=== PATIENT | male | born 1955 | race Caucasian/White ===

== ENCOUNTER 2024-03-07 06:05 | Day surgery (SDC) | payer MEDICARE, OTHER, SELFPAY ==
[2024-03-07] VITALS (10 sets, daily range): BP systolic 88–161; BP diastolic 45–69; BMI 45.1
[2024-03-07 06:46] LABS: Glucose - Point of Care 147 mg/dl (70-99)
[2024-03-07] MEDS: NSS 428 ML IV (07:14)
[2024-03-07] MEDS: LOW STRENGTH ASPIRIN 81 MG PO (07:19)
[2024-03-07] MEDS: NSS 1000 IV (08:15)
--- NOTE | 2024-03-07 08:18 | ITS.CL.CATH ---
Front Elevator Operator - Catheterization
Cardiac Catheterization
Procedure Report:
LEFT HEART CATHETERIZATION
Date of Procedure: March 07, 2024
Procedures performed:
1: Coronary angiography
2: Left ventricular hemodynamic assessment
Primary Care Physician: Dr. Yesenia Rodas
Primary Nondestructive Tester: Dr. Ander Brewer
INDICATION: The patient is a 68-year-old male with a past medical history significant for insulin-dependent diabetes, hypertension, obesity, dyslipidemia and hypothyroidism. He has a left bundle branch block on EKG and echocardiogram performed on
January 05 showed severe LV systolic dysfunction with a visually estimated ejection fraction of 25% with LV dilation with an internal dimension in diastole of 6.2 cm and a internal dimension systole of 5.0 cm. In light of his cardiomyopathy and risk
factors he is referred for coronary angiography. He has no typical angina. Nuclear perfusion imaging performed on January 26 showed large moderate to severely intense fixed inferior and anterior anteroapical defect consistent with nontransmural
infarction or hibernating myocardium in the RCA and LAD vascular distributions. There is no significant redistribution at rest.
ACCESS: The patient was prepped and draped in usual sterile fashion. A 6 [place] sheath was placed in the right radial artery using the Seldinger over the wire technique.
HEMODYNAMIC FINDINGS (mmHg):
LV(s/d,EDP): 135/18, 28
Ao(s/d,m): 135/62, 80
ANGIOGRAPHIC FINDINGS:
Single-plane Left Ventriculography in [facility] Projection: Not done
Coronary Angiography:
Dominance: Right
Left Main: The left main is medium caliber and has moderate distal calcification with a smooth 30% distal stenosis.
Left Anterior Descending: The left anterior descending artery is a medium caliber vessel that gives rise to 1 medium caliber diagonal branch. The LAD itself has mild luminal irregularities with normal distal flow and no focal disease. The major
diagonal branch has a focal mid 60% stenosis with normal distal flow.
Left Circumflex: The circumflex ostium is calcified with mild nonobstructive disease. There is a high first obtuse marginal branch that is a medium caliber vessel that courses in a ramus distribution with a long 40 to 50% proximal stenosis. The
second obtuse marginal branch is a medium caliber vessel that bifurcates into 2 major distal branches. These vessels are widely patent with normal flow. The circumflex terminates in a larger third obtuse marginal branch that also has only mild
luminal irregularities with normal distal flow.
Right Coronary: The right coronary artery is a medium caliber dominant vessel that gives rise to a relatively small posterior descending artery. These vessels have mild luminal irregularities with normal distal flow.
Fluoroscopy Time (min): 6.5
Radiation Dose (mGy): 715
DAP (Gy.cm2): 76
Closure device: None. A TR band was applied for hemostasis at the right wrist.
Complications: None.
ASSESSMENT:
1: Nonobstructive coronary artery disease.
2: Elevated left ventricular filling pressures.
CONCLUSIONS and RECOMMENDATIONS:
1: Medical therapy for coronary artery disease
2: Continue medical therapy for a cardiomyopathy. 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
3: Clinical follow-up as scheduled.
Kiara Velasco M.D.
Copy to: Dr. Yesenia Rodas
== END 2024-03-07 11:00 | disposition home or self-care (01) ==
LOC: CATH 06:05
PROVIDERS: ATTENDING PHYSICIAN Internal Medicine Interventional Cardiology; FAMILY PHYSICIAN Family Medicine; OTHER PHYSICIAN Internal Medicine Cardiovascular Disease
DX: I25.10 Atherosclerotic heart disease of native coronary artery without angina pectoris (principal); I13.0 Hypertensive heart and chronic kidney disease with heart failure and stage 1 through stage 4 chronic kidney disease, or unspecified chronic kidney disease; E11.22 Type 2 diabetes mellitus with diabetic chronic kidney disease; N18.31 Chronic kidney disease, stage 3a; I50.22 Chronic systolic (congestive) heart failure; E78.5 Hyperlipidemia, unspecified; E03.9 Hypothyroidism, unspecified; I44.7 Left bundle-branch block, unspecified; E66.9 Obesity, unspecified; Z68.42 Body mass index [BMI] 45.0-49.9, adult; Z79.82 Long term (current) use of aspirin; Z79.4 Long term (current) use of insulin; Z79.84 Long term (current) use of oral hypoglycemic drugs
CPT/HCPCS: 82962; 93458; C1894; Q9967